=== PATIENT | male | born 1960 | race Caucasian/White ===

== ENCOUNTER → 2016-07-04 | Outpatient (CLI) | payer BC ==
[2016-07-04 10:25] LABS: Basophils % (A) 1 %; CH 32.7; CHCM 34.1; Eosinophils # (A) 0.2 k/uL (0-0.7); Eosinophils % (A) 5 %; HCT 51.2 % (39.0-53.0); HDW 2.64; HGB 17.3 gm/dL (13.0-17.5); Luc # (Auto) 0.14; Luc % (Auto) 4; Lymphocytes # (A) 1.4 k/uL (1.0-4.8); Lymphocytes % (A) 38 %; MCH 32.5 pg (25.0-35.0); MCHC 33.8 g/dL (31.0-37.0); MCV 96.2 fL (80.0-100.0); Mean Platelet Volume 6.9; Monocytes # (A) 0.3 k/uL (0-1.0); Monocytes % (A) 9 %; Neutrophils # (A) 1.6 k/uL (1.3-7.7); Neutrophils % (A) 44 %; RBC 5.32 m/uL (4.30-5.90); RDW 13.5 % (11.5-15.5); WBC 3.6 k/uL (3.8-10.6); WBC (Perox) 3.67
[2016-07-04 10:37] LABS: ALT 44 U/L (21-72); AST 28 U/L (17-59); Alkaline Phosphatase 82 U/L (38-126); Anion Gap 8 mmol/L; Blood Urea Nitrogen 24 mg/dL (9-20); Calcium 9.5 mg/dL (8.4-10.2); Carbon Dioxide 29 mmol/L (22-30); Chloride 105 mmol/L (98-107); Cholesterol 196 mg/dL (<200); Glucose 100 mg/dL (74-99); HDL Cholesterol 63 mg/dL (40-60); Non-African American GFR(MDRD) >60 (>60 ml/min/1.73 sqM); Potassium 4.4 mmol/L (3.5-5.1); Sodium 142 mmol/L (137-145); Total Bilirubin 0.6 mg/dL (0.2-1.3); Total Protein 8.1 g/dL (6.3-8.2); Triglycerides 54 mg/dL (<150)
== END | disposition home or self-care (01) ==
LOC: LABWHC1 09:25
PROVIDERS: ATTEND Internal Medicine
DX: E78.5 Hyperlipidemia, unspecified (principal); K92.1 Melena
CPT/HCPCS: 36415; 80053; 80061; 84439; 84443; 85025

== ENCOUNTER 2016-07-14 09:57 | Day surgery (SDC) | payer BC ==
[2016-07-12 11:52] VITALS: BMI 29.2
[~2016-07-14 09:57] MED LIST: LACTATED RINGERS 1,000 ML IV SCH; LIDOCAINE 1% 20 ML VIAL (10MG/ML) FOR IV START INTRADERMA PRN
[2016-07-14 12:23] VITALS: TEMP 98
[2016-07-14] MEDS ORDERED: PROPOFOL 10 MG/ML 20 ML VIAL IV ONE (13:11)
--- NOTE | 2016-07-14 13:45 | P.PCN ---
Date of Procedure: 07/14/16 Procedure(s) Performed: Procedure: Total colonoscopy. Preoperative diagnosis: Intermittent rectal bleeding. Postoperative diagnosis: 1. Low-grade internal hemorrhoids not bleeding at the time of this exam. 2. Mild sigmoid diverticulosis. Preparation: HalfLytely prep. Sedation: Was provided by anesthesia. Brief clinical history: The patient is a 55-year-old male who is referred for this evaluation because of intermittent rectal bleeding. The patient has no abdominal complaints or change in bowel habits or any family history of colon cancer. No history of anemia. This would be his first colonoscopy. Procedure: With the patient on his left lateral decubitus position and after informed consent and adequate sedation, the perianal area was inspected and it did not show any fissures or fistulas. There were no masses felt on digital rectal examination. The Olympus CFQ 160L video colonoscope was then inserted in the rectum in the usual fashion and advanced to the cecum. There was occasional small diverticular orifice seen in the distal sigmoid with no evidence of acute diverticulitis or strictures. The mucosa appeared healthy. No polyps or tumors were seen. I retroflexed endoscope in the rectum before the endoscope was withdrawn. Low-grade internal hemorrhoids were noted but there was no evidence of bleeding. The patient tolerated the procedure well. Plan: The patient was reassured. Discussed dietary measures and local care for hemorrhoids. He will follow up with you as planned and further plans based on his course. For his colonoscopy screening, I am recommending repeat exam in 10 years.
[2016-07-14 13:46] VITALS: RESP 18
[2016-07-14 14:02] VITALS: BP 118/74; PULSE 61
== END 2016-07-14 14:24 | disposition home or self-care (01) ==
LOC: ORWHC2ENDO 09:57
DX: K57.30 Diverticulosis of large intestine without perforation or abscess without bleeding (principal); K64.8 Other hemorrhoids
CPT/HCPCS: 45378; J2704

== ENCOUNTER → 2021-09-08 | Outpatient (CLI) | payer BC ==
--- NOTE | 2021-09-08 08:02 | XR ---
EXAMINATION TYPE: XR chest 2V DATE OF EXAM: 09/08/2021 COMPARISON: NONE TECHNIQUE: PA and lateral views submitted. HISTORY: MRI clearance. FINDINGS: The lungs are clear and there is no pneumothorax, pleural effusion, or focal pneumonia. Heart size normal. No overt failure. No diagnostic evidence of cardiomegaly. Hypertrophic changes of the spine. IMPRESSION: 1. No acute process.
== END | disposition home or self-care (01) ==
LOC: RADXRMAIN 07:36
PROVIDERS: ATTEND Orthopaedic Surgery Sports Medicine
DX: Z18.10 Retained metal fragments, unspecified (principal)
CPT/HCPCS: 71046

== ENCOUNTER 2022-02-03 00:51 | Emergency (ER) | payer BC ==
[2022-02-03 01:08] VITALS: RESP 16
[2022-02-03 01:16] VITALS: PULSE 72
[2022-02-03 01:57] LABS: Basophils # (A) 0.1 k/uL (0-0.2); Basophils % (A) 1 %; Eosinophils # (A) 0.3 k/uL (0-0.7); Eosinophils % (A) 7 %; HCT 42.2 % (39.0-53.0); HGB 15.4 gm/dL (13.0-17.5); Lymphocytes # (A) 1.7 k/uL (1.0-4.8); Lymphocytes % (A) 41 %; MCH 33.1 pg (25.0-35.0); MCHC 36.4 g/dL (31.0-37.0); MCV 91.1 fL (80.0-100.0); Mean Platelet Volume 7.6; Monocytes # (A) 0.4 k/uL (0-1.0); Monocytes % (A) 9 %; Neutrophils # (A) 1.6 k/uL (1.3-7.7); Neutrophils % (A) 38 %; Platelet Count 152 k/uL (150-450); RBC 4.64 m/uL (4.30-5.90); RDW 12.5 % (11.5-15.5); WBC 4.2 k/uL (3.8-10.6)
--- NOTE | 2022-02-03 02:07 | ED ---
General Adult HPI - General Chief complaint: Extremity Problem,Nontraumatic Stated complaint: Post-op LT knee inflammation Time Seen by Provider: 02/03/22 01:03 Source: patient, RN notes reviewed Mode of arrival: ambulatory Limitations: no limitations - History of Present Illness Initial comments: 61-year-old male presents to the emergency department for evaluation of increased pain, swelling, and erythema to the left knee. Patient states he had a meniscus repair in October and has been unable to achieve an return to normal activity due to persistent complications. Patient states he has had an MRI and an x-ray of the knee in the past week. States he has been doing physical therapy as directed. Has also been seeking foster care social worker, which had given him some relief of symptoms. Reports worsening of swelling this evening. States pain is worse when laying flat with leg extended. Describes pain as a constant ache. No new injury. Denies fever, chills, chest pain, shortness of breath, back pain, or numbness/tingling in the affected extremity. - Related Data Home Medications Medication Instructions Recorded Confirmed No Known Home Medications 07/12/16 07/14/16 Allergies Allergy/AdvReac Type Severity Reaction Status Date / Time No Known Allergies Allergy Verified 02/03/22 01:02 Review of Systems ROS Statement: Those systems with pertinent positive or pertinent negative responses have been documented in the HPI. ROS Other: All systems not noted in ROS Statement are negative. Past Medical History Past Medical History: No Reported History Additional Past Medical History / Comment(s): SCREENING History of Any Multi-Drug Resistant Organisms: None Reported Past Surgical History: Orthopedic Surgery Additional Past Surgical History / Comment(s): HAD HEART SURGERY AT AGE 6 Past Anesthesia/Blood Transfusion Reactions: No Reported Reaction Past Psychological History: No Psychological Hx Reported Smoking Status: Never smoker Past Alcohol Use History: None Reported Past Drug Use History: None Reported - Past Family History Mother Family Medical History: No Reported History General Exam Limitations: no limitations General appearance: alert, in no apparent distress (Nontoxic, pleasant male in no acute distress.) ENT exam: Present: mucous membranes moist Respiratory exam: Present: normal lung sounds bilaterally. Absent: respiratory distress, wheezes, rales, rhonchi, stridor, chest wall tenderness Cardiovascular Exam: Present: regular rate, normal rhythm, normal heart sounds. Absent: systolic murmur, diastolic murmur, rubs, gallop, clicks GI/Abdominal exam: Present: soft, normal bowel sounds. Absent: distended, tenderness, guarding, rebound, rigid Left Upper Leg exam: Present: normal inspection, full ROM. Absent: tenderness, swelling Knee exam: Present: tenderness (tenderness upon palpation infrapatellar, medial aspect), swelling (generalized swelling of the left knee with a localized area medial extending posteriorly), erythema (mildly erythematous area to the medial aspect of the left knee extending posterior), full knee extension. Absent: ecchymosis Lower Leg exam: Present: full ROM, swelling. Absent: tenderness, erythema, Homans' sign Ankle exam: Present: normal inspection, full ROM. Absent: tenderness, swelling Foot/Toe exam: Present: normal inspection, full ROM. Absent: tenderness, swelling Neurovascular tendon exam: Present: no vascular compromise, pulse deficit Neurological exam: Present: alert, oriented X3, normal gait Psychiatric exam: Present: normal affect, normal mood Skin exam: Present: warm, dry, intact Course Vital Signs 02/03/22 02/03/22 02/03/22 00:59 01:07 01:15 Temperature 97.8 F 98 F Pulse Rate 79 79 72 Respiratory 18 16 16 Rate Blood Pressure 135/90 135/90 136/90 O2 Sat by Pulse 96 97 100 Oximetry 02/03/22 02/03/22 03:21 03:45 Temperature 98.6 F Pulse Rate 72 72 Respiratory 16 16 Rate Blood Pressure 127/86 O2 Sat by Pulse 98 100 Oximetry - Reevaluation(s) Reevaluation #1: 02/03/22 02:18 Upon reassessment, patient was able to tolerate ultrasound without difficulty. He continues to have moderate amount of pain, though does decline pain medication. Range of motion is intact. Discussed x-ray and patient is agreeable with this plan of care. Medical Decision Making - Medical Decision Making This is a pleasant 61-year-old male who presents to the emergency department for evaluation of left knee pain status post meniscal repair in October. Upon exam, patient is well-appearing and in no acute distress, though is anxious about ongoing issues with his knee. Patient declines need for pain medication. Imaging was obtained. X-ray was negative for any acute findings and no evidence of DVT on ultrasound. Laboratory studies were obtained and are unremarkable. Patient is ambulatory and able to fully extend his knee. Erythema is mild and swelling is mild to moderate. Results were discussed with patient and spouse and they are reassured by these findings. He will follow up with orthopedics and continue his home regimen. Return parameters were discussed in detail. Patient verbalizes understanding and agrees with this plan. Attending: Lissa. - Lab Data Result diagrams: 02/03/22 01:44 02/03/22 01:44 Lab Results 02/03/22 02/03/22 Range/Units 01:44 01:44 WBC 4.2 (3.8-10.6) k/uL RBC 4.64 (4.30-5.90) m/uL Hgb 15.4 (13.0-17.5) gm/dL Hct 42.2 (39.0-53.0) % MCV 91.1 (80.0-100.0) fL MCH 33.1 (25.0-35.0) pg MCHC 36.4 (31.0-37.0) g/dL RDW 12.5 (11.5-15.5) % Plt Count 152 (150-450) k/uL MPV 7.6 Neutrophils % 38 % Lymphocytes % 41 % Monocytes % 9 % Eosinophils % 7 % Basophils % 1 % Neutrophils # 1.6 (1.3-7.7) k/uL Lymphocytes # 1.7 (1.0-4.8) k/uL Monocytes # 0.4 (0-1.0) k/uL Eosinophils # 0.3 (0-0.7) k/uL Basophils # 0.1 (0-0.2) k/uL Sodium 138 (137-145) mmol/L Potassium 4.3 (3.5-5.1) mmol/L Chloride 105 (98-107) mmol/L Carbon Dioxide 24 (22-30) mmol/L Anion Gap 9 mmol/L BUN 25 H (9-20) mg/dL Creatinine 1.01 (0.66-1.25) mg/dL Est GFR (CKD-EPI)AfAm >90 (>60 ml/min/1.73 sqM) Est GFR (CKD-EPI)NonAf 81 (>60 ml/min/1.73 sqM) Glucose 103 H (74-99) mg/dL Calcium 8.6 (8.4-10.2) mg/dL - Radiology Data Radiology results: report reviewed, image reviewed Venous Doppler study of the left lower extremity was obtained. Report was reviewed in its entirety. Impression per Dr. Bennett is negative for DVT. X-ray of the left knee was obtained. Report was reviewed in its entirety. Impression per Dr. Bennett is negative with the exam. No fracture seen. Disposition Clinical Impression: Left knee pain Disposition: HOME SELF-CARE Condition: Stable Instructions (If sedation given, give patient instructions): Knee Pain (ED) Additional Instructions: Continue your home treatment plan including ice, rest, and chiropractic management. Follow up with your orthopedist on your MRI results. Return to the emergency department with any new, worsening, or concerning symptoms. Is patient prescribed a controlled substance at d/c from ED?: No Referrals: Ryan Henriquez MD [Primary Care Provider] - 1-2 days Time of Disposition: 03:44
--- NOTE | 2022-02-03 02:18 | US ---
EXAMINATION TYPE: US venous doppler duplex LE LT DATE OF EXAM: 02/03/2022 1:15 AM COMPARISON: NONE CLINICAL HISTORY: left lower extremity edema and pain. Left knee swelling. Knee surgery 3 months ago. No hx of DVTq SIDE PERFORMED: Left TECHNIQUE: The lower extremity deep venous system is examined utilizing real time linear array sonog geoffrey with graded compression, doppler sonography and color-flow sonography. VESSELS IMAGED: Common Femoral Vein Deep Femoral Vein Greater Saphenous Vein * Femoral Vein Popliteal Vein Small Saphenous Vein * Proximal Calf Veins (* superficial vessels) Left Leg: Negative for DVT IMPRESSION: No evidence of deep vein thrombosis in the left leg.
--- NOTE | 2022-02-03 02:48 | XR ---
EXAMINATION TYPE: XR knee complete LT DATE OF EXAM: 02/03/2022 COMPARISON: NONE HISTORY: Knee pain TECHNIQUE: 3 views FINDINGS: Knee joint spaces are normal. I see no fracture nor dislocation. No sign of joint effusion . IMPRESSION: Negative left knee exam. No fracture.
[2022-02-03 02:55] LABS: African American GFR (CKD) >90 (>60 ml/min/1.73 sqM); Anion Gap 9 mmol/L; Blood Urea Nitrogen 25 mg/dL (9-20); Calcium 8.6 mg/dL (8.4-10.2); Carbon Dioxide 24 mmol/L (22-30); Chloride 105 mmol/L (98-107); Glucose 103 mg/dL (74-99); Non-African American GFR(CKD) 81 (>60 ml/min/1.73 sqM); Potassium 4.3 mmol/L (3.5-5.1); Sodium 138 mmol/L (137-145)
[2022-02-03 03:45] VITALS: BP 127/86; TEMP 98.6
== END 2022-02-03 03:46 | disposition home or self-care (01) ==
LOC: EC 00:51
DX: M25.562 Pain in left knee (principal); Z98.890 Other specified postprocedural states
CPT/HCPCS: 36415; 80048; 85025; 99284

== ENCOUNTER → 2022-10-23 | Outpatient (CLI) | payer BC ==
[2022-10-23 10:32] LABS: INR 1.1 (<1.2); Prothrombin Time 11.4 sec (9.0-12.0)
[2022-10-23 11:24] LABS: Appearance,Urine Clear (Clear); Bilirubin,Urine Negative (Negative); Blood,Urine Trace (Negative); Color,Urine Yellow; Glucose,Urine (UA) Negative (Negative); Ketones,Urine Negative (Negative); Leukocyte Esterase,Urine Negative (Negative); Mucus,Urine Rare /hpf; Nitrite,Urine Negative (Negative); Protein,Urine Negative (Negative); RBC,Urine 1 /hpf (0-5); Specific Gravity,Urine 1.024 (1.001-1.035); Urobilinogen,Urine <2.0 mg/dL (<2.0)
[2022-10-23 13:42] LABS: Basophils # (A) 0.04 X 10*3/uL (0.00-0.10); Basophils % (A) 0.7 %; Eosinophils # (A) 0.11 X 10*3/uL (0.04-0.35); Eosinophils % (A) 1.9 %; HCT 46.8 % (39.6-50.0); HGB 16.9 d/dL (13.0-17.0); Lymphocytes # (A) 1.75 X 10*3/uL (0.90-5.00); MCH 32.6 pg (27.0-32.0); MCHC 36.1 d/dL (32.0-37.0); MCV 90.3 FL (80.0-97.0); Mean Platelet Volume 9.6 FL (9.5-12.2); Monocytes # (A) 0.54 X 10*3/uL (0.20-1.00); Monocytes % (A) 9.3 %; NRBC Per 100 WBC 0 X 10*3/uL (0.00-0.01); Neutrophils # (A) 3.37 X 10*3/uL (1.80-7.70); Neutrophils % (A) 57.8 %; Platelet Count 222 X 10*3/uL (140-440); RBC 5.18 X 10*6/uL (4.40-5.60); RDW 12.8 % (11.5-14.5); WBC 5.83 X 10*3/uL (4.50-10.00)
[2022-10-23 17:22] LABS: ALT 31 U/L (10-49); AST 24 U/L (14-35); Albumin 4.8 d/dL (3.8-4.9); Albumin/Globulin Ratio 1.71 Ratio (1.60-3.17); Alkaline Phosphatase 86 U/L (41-126); Blood Urea Nitrogen 27.1 mg/dL (9.0-27.0); Calcium 9.8 mg/dL (8.7-10.3); Carbon Dioxide 23.4 mmol/L (21.6-31.8); Chloride 104 mmol/L (96-109); Chol/HDL Ratio 3.44 Ratio; Globulin 2.8 d/dL (1.6-3.3); Glucose 97 mg/dL (70-110); Potassium 4.4 mmol/L (3.5-5.5); Sodium 138 mmol/L (135-145); Total Bilirubin 0.5 mg/dL (0.3-1.2); Total Protein 7.6 d/dL (6.2-8.2); VLDL Calculation 9.44 mg/dL (5.00-40.00)
== END | disposition home or self-care (01) ==
LOC: LABMAIN 09:56
PROVIDERS: ATTEND Family Medicine
DX: Z00.01 Encounter for general adult medical examination with abnormal findings (principal)
CPT/HCPCS: 80053; 80061; 81001; 84153; 85025; 85610; 85730